=== PATIENT | female | born 1985 | race Caucasian/White ===

== ENCOUNTER → 2016-03-23 12:00 | Emergency (ER) | payer OTHER ==
[~2016-03-23 12:00] MED LIST: NS 0.9% 1000 ML* 2,000 ML IV ONE
[2016-03-23 12:25] LABS: Hematocrit 37 % (35-47); Hemoglobin 12.1 g/dl (12.0-16.0); Mean Corpuscular HGB Conc 33 g/dl (31-36); Mean Corpuscular Hemoglobin 29 pg (27-31); Mean Corpuscular Volume 88 fL (80-97); Mean Platelet Volume 9 um3 (7.4-10.4); Red Blood Count 4.18 10^6/ul (4.0-5.4); Red Cell Distribution Width 17 % (10.5-15); White Blood Count 14.2 10^3/ul (3.5-10.8)
[2016-03-23 12:41] LABS: ALT 18 U/L (7-52); AST 23 U/L (13-39); Albumin 4.3 g/dL (3.2-5.2); Alkaline Phosphatase 50 U/L (34-104); Anion Gap 3 mmol/L (2-11); BUN/Creatinine Ratio 12.9 (8-20); Blood Urea Nitrogen 11 mg/dL (6-24); CO2 Carbon Dioxide 27 mmol/L (22-32); Calcium 9.8 mg/dL (8.6-10.3); Chloride 103 mmol/L (101-111); EGFR Non-African American 78.5 (>60); Globulin 2.8 g/dL (2-4); Glucose 86 mg/dL (70-100); Sodium 133 mmol/L (133-145); Total Protein 7.1 g/dL (6.4-8.9)
[2016-03-23 12:58] LABS: Acetaminophen < 15 mcg/mL; Alcohol < 10 mg/dL (<10); Salicylate < 2.50 mg/dL (<30)
[2016-03-23 13:09] LABS: TSH (Thyroid Stimulating Horm) 0.77 mcIU/mL (0.34-5.60)
[2016-03-23 14:07] LABS: Urine Bilirubin Negative (Negative); Urine Glucose Negative (Negative); Urine Nitrite Negative (Negative)
[2016-03-23 14:30] LABS: Benzodiazepine Urine Screen Presumptive Positive (None Detect)
--- NOTE | 2016-03-23 14:43 | ED ---
Alejandro Seaman Matthew, scribed for Jhon Torrez MD on 03/23/16 at 1230 . Substance Abuse/Use - HPI Summary HPI Summary: A 31 y/o female presents to the ED after ingesting approximately 20 0.5mg xanaxs an hour ago. Her normal dose is 4 times daily. The patient states that she was having a bad day today, which prompted her to take the excess medication. She has a Hx of taking extra medication. She wont definitively say whether this was a suicide attempt. The patient is currently having difficulty staying a sleep and feels fatigued. She denies decreased appetite, hearing voices, believing people are out to get her, chest pain, calf swelling, and recent illnesses. She has a Hx of depression and was hospitalized for a week in [place]. She occasionally smokes marijuana and 1ppd. FHx includes depression and bipolar disorder. Currently, the patient states that she feels fine. She takes gabapentin for depression. - History Of Current Complaint Chief Complaint: EDOverdose Stated Complaint: OVERDOSE ON 20 XANAX Time Seen by Provider: 03/23/16 12:09 Hx Obtained From: Patient Hx Last Menstrual Period: 02/12/15 ?: No Onset/Duration of Drug/ETOH Abuse: Hours Ingestion History: Type/Name Of Drug - Xanax Overdose Characteristics: Oral Timing Of Abuse: Binge Use Severity Initially: Moderate Severity Currently: Moderate Character: Other - Fatigue Alleviating Factor(s): Nothing Associated Signs And Symptoms: Sleep Disturbance - difficulty staying a sleep, Other: - Fatigue - Allergies/Home Medications Allergies/Adverse Reactions: Allergies Allergy/AdvReac Type Severity Reaction Status Date / Time No Known Allergies Allergy Verified 07/10/15 17:10 PMH/Surg Hx/FS Hx/Imm Hx Endocrine/Hematology History: Denies: Hx Diabetes, Hx Thyroid Disease Cardiovascular History: Denies: Hx Hypertension Respiratory History: Reports: Hx Asthma Denies: Hx Chronic Obstructive Pulmonary Disease (COPD) GI History: Denies: Hx Ulcer Infectious Disease History: No Infectious Disease History: Denies: Hx Clostridium Difficile, Hx Hepatitis, Hx Human Immunodeficiency Virus (HIV), Hx of Known/Suspected MRSA, Hx Shingles, Hx Tuberculosis, Hx Known/ Suspected VRE, Hx Known/Suspected VRSA, History Other Infectious Disease, Traveled Outside the [place] in Last 30 Days - Family History Family History: FHx of depression and bipolar disorder - Social History Alcohol Use: None Substance Use Type: Reports: Marijuana Substance Use Comment - Amount & Last Used: occasional Hx Tobacco Use: Yes Smoking Status (MU): Light Every Day Tobacco Smoker Type: Cigarettes Amount Used/How Often: 1/2 PPD Review of Systems Constitutional: Other - Difficulty staying a sleep Positive: Fatigue Eyes: Negative ENT: Negative Cardiovascular: Negative Negative: Chest Pain Respiratory: Negative Gastrointestinal: Negative Genitourinary: Negative Musculoskeletal: Negative Negative: Edema - calf Skin: Negative Neurological: Negative Psychological: Other Positive: Depressed All Other Systems Reviewed And Are Negative: Yes Physical Exam - Summary Physical Exam Summary: The patient is well-nourished in no acute distress and in no acute pain. The skin is warm and dry and skin color reflects adequate perfusion. HEENT: The head is normocephalic and atraumatic. The pupils are equal and reactive. The conjunctivae are clear and without drainage. Nares are patent and without drainage. Mouth reveals moist mucous membranes and the throat is without erythema and exudate. The external ears are intact. The ear canals are patent and without drainage. The tympanic membranes are intact. Neck is supple with full range of motion and non-tender. There are no carotid bruits. There is no neck vein distension. Respiratory: Chest is non-tender. Lungs are clear to auscultation and breath sounds are symmetrical and equal. Cardiovascular: Hear is regular rate and rhythm. There is no murmur or rub auscultated. There is no peripheral edema and pulses are symmetrical and equal. Abdomen: The abdomen is soft and non-tender. There are normal bowel sounds heard in all four quadrants and there is no organomegaly palpated. Musculoskeletal: There is no back pain noted. Extremities are non-tender with full range of motion. There is good capillary refill. There is no peripheral edema or calf tenderness elicited. No cuts noted on her UE or LE. Neurological: Patient is alert and oriented to person, place and time. The patient has symmetrical motor strength in all four extremities. Cranial nerves are grossly intact. Deep tendon reflexes are symmetrical and equal in all four extremities. Psychiatric: The patient appears depressed with a flat affect. Triage Information Reviewed: Yes Vital Signs On Initial Exam: Initial Vitals Temp Pulse Resp BP Pulse Ox 97.7 F 75 17 108/70 97 03/23/16 12:14 03/23/16 12:14 03/23/16 12:14 03/23/16 12:14 03/23/16 12:14 Vital Signs Reviewed: Yes Diagnostics - Vital Signs Vital Signs Temp Pulse Resp BP Pulse Ox 03/23/16 12:14 97.7 F 75 17 108/70 97 - Laboratory Lab Results: Lab Results 03/23/16 03/23/16 03/23/16 Range/Units 12:10 12:10 13:58 WBC 14.2 H (3.5-10.8) 10^3/ul RBC 4.18 (4.0-5.4) 10^6/ul Hgb 12.1 (12.0-16.0) g/dl Hct 37 (35-47) % MCV 88 (80-97) fL MCH 29 (27-31) pg MCHC 33 (31-36) g/dl RDW 17 H (10.5-15) % Plt Count 213 (150-450) 10^3/ul MPV 9 (7.4-10.4) um3 Neut % (Auto) 81.8 (38-83) % Lymph % (Auto) 11.6 L (25-47) % [place] % (Auto) 5.1 (1-9) % Eos % (Auto) 1.1 (0-6) % Baso % (Auto) 0.4 (0-2) % Absolute Neuts (auto) 11.6 H (1.5-7.7) 10^3/ul Absolute Lymphs (auto) 1.6 (1.0-4.8) 10^3/ul Absolute Monos (auto) 0.7 (0-0.8) 10^3/ul Absolute Eos (auto) 0.2 (0-0.6) 10^3/ul Absolute Basos (auto) 0.1 (0-0.2) 10^3/ul Absolute Nucleated RBC 0.01 10^3/ul Nucleated RBC % 0.1 Sodium 133 (133-145) mmol/L Potassium 4.0 (3.5-5.0) mmol/L Chloride 103 (101-111) mmol/L Carbon Dioxide 27 (22-32) mmol/L Anion Gap 3 (2-11) mmol/L BUN 11 (6-24) mg/dL Creatinine 0.85 (0.51-0.95) mg/dL Est GFR ( Amer) 101.0 (>60) Est GFR (Non-Af Amer) 78.5 (>60) BUN/Creatinine Ratio 12.9 (8-20) Glucose 86 (70-100) mg/dL Calcium 9.8 (8.6-10.3) mg/dL Total Bilirubin 0.50 (0.2-1.0) mg/dL AST 23 (13-39) U/L ALT 18 (7-52) U/L Alkaline Phosphatase 50 (34-104) U/L Total Protein 7.1 (6.4-8.9) g/dL Albumin 4.3 (3.2-5.2) g/dL Globulin 2.8 (2-4) g/dL Albumin/Globulin Ratio 1.5 (1-3) TSH 0.77 (0.34-5.60) mcIU/mL Beta HCG, Quant 0.97 mIU/mL Urine Color Yellow Urine Appearance Clear Urine pH 6.0 (5-9) Ur Specific [place] 1.005 L (1.010-1.030) Urine Protein Negative (Negative) Urine Ketones Negative (Negative) Urine Blood Negative (Negative) Urine Nitrate Negative (Negative) Urine Bilirubin Negative (Negative) Urine Urobilinogen Negative (Negative) Ur Leukocyte Esterase Negative (Negative) Urine Glucose Negative (Negative) Salicylates < 2.50 (<30) mg/dL Urine Opiates Screen (None Detect) Acetaminophen < 15 mcg/mL Ur Barbiturates Screen (None Detect) Ur Phencyclidine Scrn (None Detect) Ur Amphetamines Screen (None Detect) U Benzodiazepines Scrn (None Detect) Urine Cocaine Screen (None Detect) U Cannabinoids Screen (None Detect) Serum Alcohol < 10 (<10) mg/dL 03/23/16 Range/Units 13:58 WBC (3.5-10.8) 10^3/ul RBC (4.0-5.4) 10^6/ul Hgb (12.0-16.0) g/dl Hct (35-47) % MCV (80-97) fL MCH (27-31) pg MCHC (31-36) g/dl RDW (10.5-15) % Plt Count (150-450) 10^3/ul MPV (7.4-10.4) um3 Neut % (Auto) (38-83) % Lymph % (Auto) (25-47) % [place] % (Auto) (1-9) % Eos % (Auto) (0-6) % Baso % (Auto) (0-2) % Absolute Neuts (auto) (1.5-7.7) 10^3/ul Absolute Lymphs (auto) (1.0-4.8) 10^3/ul Absolute Monos (auto) (0-0.8) 10^3/ul Absolute Eos (auto) (0-0.6) 10^3/ul Absolute Basos (auto) (0-0.2) 10^3/ul Absolute Nucleated RBC 10^3/ul Nucleated RBC % Sodium (133-145) mmol/L Potassium (3.5-5.0) mmol/L Chloride (101-111) mmol/L Carbon Dioxide (22-32) mmol/L Anion Gap (2-11) mmol/L BUN (6-24) mg/dL Creatinine (0.51-0.95) mg/dL Est GFR ( Amer) (>60) Est GFR (Non-Af Amer) (>60) BUN/Creatinine Ratio (8-20) Glucose (70-100) mg/dL Calcium (8.6-10.3) mg/dL Total Bilirubin (0.2-1.0) mg/dL AST (13-39) U/L ALT (7-52) U/L Alkaline Phosphatase (34-104) U/L Total Protein (6.4-8.9) g/dL Albumin (3.2-5.2) g/dL Globulin (2-4) g/dL Albumin/Globulin Ratio (1-3) TSH (0.34-5.60) mcIU/mL Beta HCG, Quant mIU/mL Urine Color Urine Appearance Urine pH (5-9) Ur Specific [place] (1.010-1.030) Urine Protein (Negative) Urine Ketones (Negative) Urine Blood (Negative) Urine Nitrate (Negative) Urine Bilirubin (Negative) Urine Urobilinogen (Negative) Ur Leukocyte Esterase (Negative) Urine Glucose (Negative) Salicylates (<30) mg/dL Urine Opiates Screen None detected (None Detect) Acetaminophen mcg/mL Ur Barbiturates Screen None detected (None Detect) Ur Phencyclidine Scrn None detected (None Detect) Ur Amphetamines Screen None detected (None Detect) U Benzodiazepines Scrn Presumptive positive H (None Detect) Urine Cocaine Screen None detected (None Detect) U Cannabinoids Screen Presumptive positive H (None Detect) Serum Alcohol (<10) mg/dL Result Diagrams: 03/23/16 12:10 03/23/16 12:10 Lab Statement: Any lab studies that have been ordered have been reviewed, and results considered in the medical decision making process. - EKG 12:03 Cardiac Rate: NL - 81 bpm EKG Rhythm: Sinus Rhythm ST Segment: Normal EKG Interpretation: No Prolonged QT interval; Normal [place] Course/Dx - Course Assessment/Plan: A 31 y/o female presents to the ED after ingesting approximately 20 0.5mg xanaxs an hour ago. The patient states that she is depressed. Labs were reviewed. EKG shows NSR at 81 bpm. Poison Control recommended observation for 6 hrs. After the observation, the patient will be given a MHE. The patient will be discharged to Dr. Oseguera pending MHE. - Diagnoses Differential Diagnosis/HQI/PQRI: Positive: Anxiety, Depression, Suicidal Risk Provider Diagnoses: Xanax overdose, Depression - Physician Notifications Discussed Care Of Patient With: Poison control - recommended 6 hour observation. Patient Is Medically Stable For: Psych Evaluation - After 17:00 Discharge - Discharge Plan Condition: Stable Disposition: OTHER Discharge Disposition Comment: The patient will be signed out to Dr. Oseguera pending observation and MHE The documentation as recorded by the Alejandro rees Matthew accurately reflects the service I personally performed and the decisions made by , Jhon Torrez MD.
[2016-03-23 18:13] VITALS: BP 127/85
== END | disposition home or self-care (01) ==
LOC: ED 12:00
DX: T42.4X1A Poisoning by benzodiazepines, accidental (unintentional), initial encounter (principal); Y92.9 Unspecified place or not applicable; F32.9 Major depressive disorder, single episode, unspecified; F17.210 Nicotine dependence, cigarettes, uncomplicated
CPT/HCPCS: 36415; 80053; 80307; 80320; 80329; 81003; 84443; 84702; 85025; 93005; 99283; G0480

== ENCOUNTER 2017-04-08 11:36 | Inpatient (IN) | payer OTHER ==
[2017-04-08] MEDS ORDERED: ceFOXitin 2 GM IVPREMIX* 2 GM/50 ML BAG IVPB ONE (11:44)
[2017-04-08] MEDS ORDERED: Sodium Citrate/Citric Acid* 15 ML UDC PO ONE (11:44)
[2017-04-08] MEDS ORDERED: Buffered Lidocaine 0.9% SYRIN* 5 ML/SYR SYRINGE ONE (12:35)
[2017-04-08] MEDS ORDERED: ceFOXitin(*) 2 GM in NS 0.9% 100 ML* 100 ML IVPB ONE (13:00)
[2017-04-08] MEDS ORDERED: Morphine PF AMP (0.5MG/ML)* 5 MG/10 ML AMP ONE (14:37)
[2017-04-08] MEDS ORDERED: OXYTOCIN* 10 UNITS/ML 1 ML VIAL ONE ×2 (14:56→15:59)
[2017-04-08] MEDS ORDERED: Ondansetron INJ* 2 MG/ML VIAL ONE (15:33)
[2017-04-08] MEDS ORDERED: fentaNYL* 50 MCG/ML 2 ML VIAL (100 MCG VIAL) ONE (15:40)
[2017-04-08] MEDS ORDERED: Acetaminophen TAB* 325 MG PO PRN ×2 (16:19→16:53)
[2017-04-08] MEDS ORDERED: HYDROcodone/ACETAMIN 5-325 MG* 1 TAB PO PRN (16:19)
[2017-04-08] MEDS ORDERED: Naloxone* 0.4 MG/ML 1 ML VIAL IV PRN ×2 (16:19)
[2017-04-08] MEDS ORDERED: Nalbuphine* 20 MG/ML 1 ML VIAL IV PRN ×3 (16:19)
[2017-04-08] MEDS ORDERED: Ketorolac INJ* 30 MG/ML 1 ML VIAL IV PRN (16:19)
[2017-04-08] MEDS ORDERED: diPHENhydraMINE IV* 50 MG/ML 1 ml VIAL (BENADRYL) IV PRN (16:19)
[2017-04-08] MEDS ORDERED: Zolpidem TAB* 5 MG PO PRN (16:53)
[2017-04-08] MEDS ORDERED: Dibucaine 1% 28.35 GM TUBE PR PRN (16:53)
[2017-04-08] MEDS ORDERED: Glycerin ADULT SUPP PR PRN (16:53)
[2017-04-08] MEDS ORDERED: Witch Hazel PAD* JAR TOPICAL PRN (16:53)
[2017-04-08] MEDS: Docusate CAP* 100 MG PO SCH (21:29)
[2017-04-08] MEDS: Simethicone TAB* 80 MG TAB.CHEW PO SCH (21:30)
[2017-04-08] MEDS: Ibuprofen TAB* 600 MG PO PRN (21:30)
[2017-04-08] MEDS: oxyCODONE/Acetamin 5/325 MG* TAB PO PRN (23:39)
[2017-04-09 06:35] LABS: ABS Basophils 0 10^3/ul (0-0.2); ABS Eosinophils 0.1 10^3/ul (0-0.6); ABS Lymphocytes 1.5 10^3/ul (1.0-4.8); ABS Monocytes 0.6 10^3/ul (0-0.8); ABS Neutrophils 5.9 10^3/ul (1.5-7.7); ABS Nucleated RBC 0 10^3/ul; Eosinophil % 1.2 % (0-6); Hematocrit 27 % (35-47); Hemoglobin 9.3 g/dl (12.0-16.0); Lymphocyte % 18.8 % (25-47); Mean Corpuscular HGB Conc 34 g/dl (31-36); Mean Corpuscular Hemoglobin 29 pg (27-31); Mean Corpuscular Volume 86 fL (80-97); Mean Platelet Volume 9 um3 (7.4-10.4); Nucleated Red Blood Cells % 0; Platelet Count 144 10^3/ul (150-450); Red Blood Count 3.18 10^6/ul (4.0-5.4); Red Cell Distribution Width 14 % (10.5-15); White Blood Count 8.1 10^3/ul (3.5-10.8)
[2017-04-09] MEDS: Ibuprofen TAB* 600 MG PO PRN ×3 (07:27→18:42)
[2017-04-09] MEDS: oxyCODONE/Acetamin 5/325 MG* TAB PO PRN ×4 (07:28→21:37)
[2017-04-09] MEDS: Docusate CAP* 100 MG PO SCH ×3 (07:28→21:37)
[2017-04-09] MEDS: Ferrous Gluconate TAB* 324 MG TAB PO SCH ×2 (07:28→21:37)
[2017-04-09] MEDS: Simethicone TAB* 80 MG TAB.CHEW PO SCH ×5 (07:29→21:37)
[2017-04-09] MEDS ORDERED: RHO D Immune Globulin (HUMAN)* 300 MCG = 1,500 I.U. INJ IM ONE (15:38)
--- NOTE | 2017-04-09 15:53 | OP ---
DATE OF OPERATION: 04/08/17 - ROOM #116 DATE OF : 87 SURGEON: Shanna Encarnacion MD ENGINE LATHE SET UP OPERATOR TOOL: Sharon Whitman CNM ANESTHESIA: Spinal. PRE-OP DIAGNOSES: Intrauterine gestation at 38 and 3 weeks gestational age, preeclampsia, breech presentation. POST-OP DIAGNOSES: Intrauterine gestation at 38 and 3 weeks gestational age, preeclampsia, breech presentation. OPERATIVE PROCEDURE: Primary lower transverse section and bilateral tubal ligation. ESTIMATED BLOOD LOSS: 600 mL. SPECIMEN: Placenta and tubes. FLUIDS: Crystalloid. DRAINS: Yanes. COUNTS: All correct. INDICATIONS: The patient is a G3, P2, who was planning a primary for breech presentation at 39 weeks, who was evaluated in the office, noted to have elevated blood pressures, and a 24-hour urine collection was done which was found to be over 300 mg. She also has a mild intermittent headache. FINDINGS: Male , Apgars 9 and 9. Weight 9 pounds 4 ounces. COMPLICATIONS: None. DESCRIPTION OF PROCEDURE: After informed consent was signed, the patient was taken to the operating room where she was prepped and draped in the dorsal supine position with a leftward tilt. SCDs have been placed on her legs and a Yanes catheter introduced into her bladder prior to draping. A time-out was performed and a Pfannenstiel skin incision was made with a scalpel and carried down to the underlying layer of fascia. The fascia was incised on either side of the midline and the fascial incision extended laterally with the Go scissors. The inferior edge of the fascial incision was grasped with Sada clamps, tented up and dissected down with sharp dissection. Then, the superior edge of the fascial incision was grasped with Sada clamps, tented up and dissected down with a sharp dissection. The rectus muscles were in the midline and the peritoneum was entered bluntly. The peritoneal incision was extended laterally with blunt pressure. A bladder blade was inserted and a transverse incision was made with a scalpel in the lower uterine segment. The uterine incision was extended superiorly and inferiorly with blunt pressure. The 's buttocks were then delivered with fundal pressure followed by the legs and the torso. The arms were then rotated internally and delivered followed by delivery of the head in a flexed position. After more than 30 seconds, the cord was clamped x2 and cut and the baby was handed to the senior director insight. The cord blood was collected. The placenta then delivered with uterine massage and cord traction. The uterus was exteriorized. The uterine incision was closed with 0 Vicryl in a running locked fashion with the second layer of suture imbricating the next. Attention was then turned to the tubes. The right tube was grasped with 2 Aimee clamps and double suture ligated with 0 plain. Clamps were removed. Good hemostasis was noted. Attention was turned to the left hand side with the same thing was repeated. The uterus was placed back into the abdominal cavity. At this point in time, the tubal site was inspected and on the left side, it was noted that the suture had fallen off and there was a small amount of bleeding from small vessels in 2 locations. These areas were grasped with a Aimee clamp again and re-ligated with 0 plain suture with good hemostasis noted. The abdomen was irrigated and both tubal sites were inspected once again and good hemostasis was noted. The incision was inspected with some small areas of bleeding, which stopped with cautery and then good hemostasis was noted. The peritoneum was closed with 3-0 Vicryl in a running unlocked fashion. The fascia was closed with 0 Vicryl in a running unlocked fashion and the skin was closed with 4-0 Monocryl in a running subcuticular fashion. Mastisol and Steri-Strips were placed. The incision was covered with a dressing. The patient was cleaned, moved to the stretcher and taken to the recovery room in stable condition. [id number]/[facility] #: [id number] YANIRA
[2017-04-10] MEDS: Ibuprofen TAB* 600 MG PO PRN ×4 (00:37→20:59)
[2017-04-10] MEDS: oxyCODONE/Acetamin 5/325 MG* TAB PO PRN ×4 (03:24→18:04)
[2017-04-10] MEDS: Docusate CAP* 100 MG PO SCH ×3 (09:29→20:58)
[2017-04-10] MEDS: Ferrous Gluconate TAB* 324 MG TAB PO SCH ×2 (09:29→20:59)
[2017-04-10] MEDS: Simethicone TAB* 80 MG TAB.CHEW PO SCH ×4 (09:30→20:58)
[2017-04-11] MEDS: oxyCODONE/Acetamin 5/325 MG* TAB PO PRN ×2 (03:57→08:29)
[2017-04-11] MEDS: Ibuprofen TAB* 600 MG PO PRN ×2 (03:57→11:36)
[2017-04-11 08:10] VITALS: BP 135/92
[2017-04-11] MEDS: Docusate CAP* 100 MG PO SCH (08:30)
[2017-04-11] MEDS: Simethicone TAB* 80 MG TAB.CHEW PO SCH (08:30)
[2017-04-11] MEDS: Ferrous Gluconate TAB* 324 MG TAB PO SCH (08:30)
== END 2017-04-11 11:57 | disposition home or self-care (01) | DRG 540 ==
LOC: MCHOBOUT 11:36 → MCHOB 11:38
PROVIDERS: ADMIT Obstetrics & Gynecology; ATTEND Obstetrics & Gynecology
PROC: 0UB70ZZ Excision of Bilateral Fallopian Tubes, Open Approach (ICD-10-PCS; 2017-04-08)
PROC: 4A1HXCZ Monitoring of Products of Conception, Cardiac Rate, External Approach (ICD-10-PCS; 2017-04-08)
PROC: 10D00Z1 Extraction of Products of Conception, Low, Open Approach (ICD-10-PCS; principal; 2017-04-08 14:43)
DX: O14.94 Unspecified pre-eclampsia, complicating childbirth (principal); J45.909 Unspecified asthma, uncomplicated; O32.1XX0 Maternal care for breech presentation, not applicable or unspecified; O99.52 Diseases of the respiratory system complicating childbirth; O13.4 Gestational [pregnancy-induced] hypertension without significant proteinuria, complicating childbirth; O90.81 Anemia of the puerperium; Z87.891 Personal history of nicotine dependence; Z3A.38 38 weeks gestation of pregnancy; Z37.0 Single live birth; Z67.11 Type A blood, Rh negative; Z30.2 Encounter for sterilization
CPT/HCPCS: 36415; 85025; 85461; 86850; 86900; 86901; 88302; 88307; A9270-GY; J0694; J2405; J2590; J2790; J3010

== ENCOUNTER 2017-08-27 15:15 | Emergency (ER) | payer OTHER ==
[2017-08-27 15:29] VITALS: BP 128/83
--- NOTE | 2017-08-27 15:38 | UC ---
Lower Extremity/Ankle HPI - HPI Summary HPI Summary: 32 yo female presents with RIGHT 3rd toe injury last night. She tells me that she went to open a door and the door stubbed her right middle toe. Had immediate pain. Has washed it and soaked it. Here today for increased pain and numbness at the tip of her toe. Is ambulating without assistance, but does have significant pain. - History of Current Complaint Chief Complaint: UCLowerExtremity Stated Complaint: FOOT INJURY Time Seen by Provider: 08/27/17 15:32 Hx Obtained From: Patient Hx Last Menstrual Period: 02/12/15 Onset/Duration: Sudden Onset Severity Initially: Severe Severity Currently: Moderate Pain Intensity: 6 Pain Scale Used: 0-10 Numeric Aggravating Factor(s): Standing, Ambulation Alleviating Factor(s): Rest Able to Bear Weight: Yes - Allergies/Home Medications Allergies/Adverse Reactions: Allergies Allergy/AdvReac Type Severity Reaction Status Date / Time No Known Allergies Allergy Verified 08/27/17 15:30 PMH/Surg Hx/FS Hx/Imm Hx Respiratory History: Asthma GI/ History: Gastroesophageal Reflux - Surgical History Surgical History: Yes Surgery Procedure, Year, and Place: c-sec X1 - Family History Known Family History: Positive: Unknown Family History: FHx of depression and bipolar disorder - Social History Occupation: Employed Full-time Lives: With Family Alcohol Use: None Substance Use Type: None Substance Use Comment - Amount & Last Used: occasional Smoking Status (MU): Light Every Day Tobacco Smoker Type: Cigarettes Amount Used/How Often: 1/2 PPD When Did the Patient Quit Smoking/Using Tobacco: november 2016 Review of Systems Constitutional: Negative Skin: Negative Respiratory: Negative Cardiovascular: Negative Gastrointestinal: Negative Musculoskeletal: Other: - Right 3rd toe pain Neurological: Negative Psychological: Negative All Other Systems Reviewed And Are Negative: Yes Physical Exam - Summary Physical Exam Summary: GENERAL: NAD. WDWN. No pain distress. SKIN: No rashes, sores, lesions, or open wounds. NECK: Supple. Nontender. No lymphadenopathy. CHEST: No accessory muscle use. Breathing comfortably and in no distress. CV: Pulses intact PT and DP. Brisk cap refill. MSK: RIGHT MIDDLE TOE: TTP at PIP. FROM. No edema or obvious bony deformities. Nail with scant dried blood - still attached. NEURO: Alert. Distal tip of right 3rd toe with decreased sensation. Sensations intact other toes. PSYCH: Age appropriate behavior. Triage Information Reviewed: Yes Vital Signs: Initial Vital Signs Temp 98.5 F 08/27/17 15:23 Pulse 49 08/27/17 15:23 Resp 16 08/27/17 15:23 BP 128/83 08/27/17 15:23 Pulse Ox 99 08/27/17 15:23 Lower Extremity Course/Dx - Course Course Of Treatment: XR: IMPRESSION: NO EVIDENCE FOR FRACTURE. Suspect toe contusion. Pt elected to olu tape the toe at home and will take ibuprofen for pain. - Differential Dx/Diagnosis Provider Diagnoses: Toe pain Discharge - Sign-Out/Discharge Documenting (check all that apply): Patient Departure - Discharge Plan Condition: Stable Disposition: HOME Patient Education Materials: Toe Fracture (ED) Referrals: No Primary Care Phys,NOPCP [Primary Care Provider] - Additional Instructions: If you develop a fever, shortness of breath, chest pain, new or worsening symptoms - please call your PCP or go to the ED. 1) Rest, Ice, and elevate your toe to reduce pain and swelling 2) Olu tape the toe to the long toe next to it for stability and pain relief 3) May take tylenol or ibuprofen every 6-8 hours as needed for pain - Billing Disposition and Condition Condition: STABLE Disposition: Home
--- NOTE | 2017-08-27 16:12 | RAD ---
INDICATION: Right third toe injury. TECHNIQUE: 3 views of the right third toe were obtained. FINDINGS: The bones are in normal alignment. No fracture is seen. Joint spaces appear maintained. IMPRESSION: NO EVIDENCE FOR FRACTURE.
== END 2017-08-27 16:30 | disposition home or self-care (01) ==
LOC: UCEAST 15:15
DX: M79.674 Pain in right toe(s) (principal); J45.909 Unspecified asthma, uncomplicated; K21.9 Gastro-esophageal reflux disease without esophagitis; Z81.8 Family history of other mental and behavioral disorders; F17.210 Nicotine dependence, cigarettes, uncomplicated
CPT/HCPCS: 99211; G0463

== ENCOUNTER → 2018-04-16 10:48 | Day surgery (SDC) | payer OTHER ==
[~2018-04-16 10:48] MED LIST changes: +Buffered Lidocaine 1% SYRIN* 1 ML/SYRINGE INTRADERM ONE; +Bupivacaine 0.25% SDV PF* 10 ML VIAL INJ ONE; +Dexamethasone IV* 4 MG/ML 1 ML (4 MG) ONE; +KETAMINE HCL* 50 MG/ML 10 ML VIAL ONE; +Lactated Ringers 1000 ML Bag* 1,000 ML IV SCH; +Lidocaine 1% INJ* 10 MG/ML 30 ML SDV ONE; +Lidocaine 2% PF * 5 ML VIAL ONE; +Midazolam* 1 MG/ML 2 ML VIAL (2 MG) ONE; -NS 0.9% 1000 ML* 2,000 ML IV ONE; +ceFAZolin 2 GM PREMIX in ORs 2 GM/50 ML BAG IVPB ONE; +fentaNYL* 50 MCG/ML 2 ML VIAL (100 MCG VIAL) ONE
[2018-04-16 13:24] VITALS: BP 119/83
--- NOTE | 2018-04-16 20:28 | OP ---
DATE OF OPERATION: 04/16/18 - SDS DATE OF : 87 SURGEON: Joaquín Saab DPM ANESTHESIA: MAC local. PRE-OP DIAGNOSIS: Right fifth hammertoe. POST-OP DIAGNOSIS: Right fifth hammertoe. OPERATIVE PROCEDURE: Right fifth toe arthroplasty. ESTIMATED BLOOD LOSS: Less than 10 cc. IV FLUIDS: LR 1000 cc. DRAINS: None. SPECIMENS: Bone, head of the right fifth proximal phalanx. DESCRIPTION OF PROCEDURE: The patient was taken to the operating room and was placed in a supine position. Time-out was called and the OR team agreed. The right foot was then blocked with 5 cc of 1% lidocaine plain at the base of the right fifth toe. The foot was then prepped and draped in a sterile manner. The right foot was exsanguinated with an Esmarch bandage and the cuff was then inflated to 250 mmHg. Attention was then paid to the right fifth toe where the toe was in a adductovarus position with a hammertoe deformity with a painful dorsolateral part of the toe at the proximal interphalangeal joint. This was where I made a semi- elliptical incision in a dorsomedial and plantar lateral direction. I then removed the wedge of skin in the same semi-elliptical fashion. This was followed by sharp and blunt dissection down to the proximal interphalangeal joint. All neurovascular structures were retracted from the site and either bleeders were controlled via Bovie. The extensor tendon was transected at the level of the proximal interphalangeal joint. The head of the proximal phalanx was in full view, proceeded to cut the collateral ligaments to free the site. I then dissected the head of the phalanx with a sagittal saw. Once I was able to remove that, I was able to get enough relaxation of the soft tissue envelope and I was able to derotate the toe in a straight manner. This completed the procedure. I irrigated the site. I then closed the wound in a layered anatomical fashion. The patient tolerated the procedure well. I then injected the site with 4 cc of 0.25% Marcaine plain as well as 1 cc with 4 mg of dexamethasone phosphate. The patient tolerated the procedure well. I deflated the cuff. I noticed there was instant capillary refill. There was no ischemia to all toes. The foot was then placed in a sterile dry dressing. The patient was taken to Recovery in stable condition and was later discharged in stable condition as well with possible instructions and medications. [id number]/[facility] #: [id number] YANIRA
== END | disposition home or self-care (01) ==
LOC: OR 10:48
PROVIDERS: ATTEND Podiatrist
DX: M20.41 Other hammer toe(s) (acquired), right foot (principal); J45.909 Unspecified asthma, uncomplicated; F41.9 Anxiety disorder, unspecified; Z87.891 Personal history of nicotine dependence
CPT/HCPCS: 81025; 88304; 88311; J0690; J1100; J2250; J3010; J3490